=== PATIENT | male | born 1970 | race Caucasian/White ===

== ENCOUNTER 2020-06-14 17:09 | Emergency (ER) | payer SELFPAY ==
[~2020-06-14] VITALS: Ht 172.7 cm; Wt 64.4 kg
[2020-06-14] MEDS ORDERED: LORazepam INJ 2 MG/ML (ATIVAN) VIAL IVP PRN (17:15)
[2020-06-14] MEDS ORDERED: LABETALOL HCL 20 MG/4 ML VIAL IV ONE (17:15)
--- NOTE | 2020-06-14 17:15 | ED General ---
General Chief Complaint: General Problems/Pain Stated Complaint: INTOXICATION Source of Information: Patient, EMS Exam Limitations: No Limitations History of Present Illness Date Seen by Provider: Jun 14, 2020 Time Seen by Provider: 17:14 Initial Comments To ER by EMS from an apartment complex with reports of anxiety and high blood pr essure. He drinks a lot of alcohol because he is out of his Wellbutrin. He cannot find anywhere to get this filled. He is from [facility] and has been here since January. Currently living with his cousin. Timing/Duration: 1-2 Days Severity: Moderate Associated Systoms: Denies Symptoms Allergies and Home Medications Allergies Coded Allergies: No Known Drug Allergies (Unverified , 06/14/20) Home Medications Bupropion HCl 150 Mg Tab.er.24h, 150 MG PO DAILY Prescribed by: SCOTT LEVINE on 06/14/20 184 Chlordiazepoxide HCl 25 Mg Capsule, 25 MG PO UD Day 1: 2 tabs 3 times a day Day 2: 1 tab 4 times a day Day 3: 1 tab twice a day Day 4: 1 tab at bedtime Prescribed by: SCOTT LEVINE on 06/14/20 184 Potassium Chloride 20 Meq Tablet.er, 20 MEQ PO DAILY Prescribed by: SCOTT LEVINE on 06/14/20 1904 Patient Home Medication List Home Medication List Reviewed: Yes Review of Systems Review of Systems Constitutional: see HPI EENTM: see HPI Respiratory: no symptoms reported Cardiovascular: no symptoms reported Genitourinary: no symptoms reported Musculoskeletal: no symptoms reported Skin: no symptoms reported Psychiatric/Neurological: Anxiety Hematologic/Lymphatic: No Symptoms Reported Immunological/Allergic: no symptoms reported Physical Exam Vital Signs Vital Signs - First Documented 06/14/20 17:09 Temp 36.2 Pulse 111 Resp 17 B/P (MAP) 174/114 (134) Pulse Ox 96 O2 Delivery Room Air Capillary Refill : Height, Weight, BMI Height: '" Weight: lbs. oz. kg; BMI Method: General Appearance: No Apparent Distress, WD/WN, Anxious Eyes: Bilateral Eye Normal Inspection, Bilateral Eye PERRL, Bilateral Eye EOMI Neck: Full Range of Motion, Normal Inspection Respiratory: No Accessory Muscle Use, No Respiratory Distress Cardiovascular: Normal Peripheral Pulses, Tachycardia Gastrointestinal: Normal Bowel Sounds, Non Tender, Soft Extremity: Normal Capillary Refill, Normal Inspection Neurologic/Psychiatric: Alert, Oriented x3 Skin: Normal Color, Warm/Dry Progress/Results/Core Measures Suspected Sepsis SIRS Temperature: Pulse: Respiratory Rate: Laboratory Tests 06/14/20 17:19: White Blood Count 10.0 Blood Pressure / Mean: Laboratory Tests 06/14/20 17:19: Creatinine 0.87, INR Comment 0.9, Platelet Count 336, Total Bilirubin 0.5 Results/Orders Lab Results Laboratory Tests Test 06/14/20 17:19 06/14/20 17:25 Range/Units White Blood Count 10.0 4.3-11.0 10^3/uL Red Blood Count 5.24 4.30-5.52 10^6/uL Hemoglobin 15.3 13.3-17.7 g/dL Hematocrit 46 40-54 % Mean Corpuscular Volume 89 80-99 fL Mean Corpuscular Hemoglobin 29 25-34 pg Mean Corpuscular Hemoglobin Concent 33 32-36 g/dL Red Cell Distribution Width 14.4 10.0-14.5 % Platelet Count 336 130-400 10^3/uL Mean Platelet Volume 9.0 9.0-12.2 fL Immature Granulocyte % (Auto) 0 % Neutrophils (%) (Auto) 66 42-75 % Lymphocytes (%) (Auto) 21 12-44 % Monocytes (%) (Auto) 12 0-12 % Eosinophils (%) (Auto) 1 0-10 % Basophils (%) (Auto) 1 0-10 % Neutrophils # (Auto) 6.6 1.8-7.8 10^3/uL Lymphocytes # (Auto) 2.1 1.0-4.0 10^3/uL Monocytes # (Auto) 1.2 H 0.0-1.0 10^3/uL Eosinophils # (Auto) 0.1 0.0-0.3 10^3/uL Basophils # (Auto) 0.1 0.0-0.1 10^3/uL Immature Granulocyte # (Auto) 0.0 0.0-0.1 10^3/uL Prothrombin Time 12.1 L 12.2-14.7 SEC INR Comment 0.9 0.8-1.4 Sodium Level 145 135-145 MMOL/L Potassium Level 2.8 L 3.6-5.0 MMOL/L Chloride Level 108 H 98-107 MMOL/L Carbon Dioxide Level 19 L 21-32 MMOL/L Anion Gap 18 H 5-14 MMOL/L Blood Urea Nitrogen 8 7-18 MG/DL Creatinine 0.87 0.60-1.30 MG/DL Estimat Glomerular Filtration Rate > 60 BUN/Creatinine Ratio 9 Glucose Level 163 H 70-105 MG/DL Calcium Level 9.2 8.5-10.1 MG/DL Corrected Calcium 8.5-10.1 MG/DL Total Bilirubin 0.5 0.1-1.0 MG/DL Aspartate Amino Transf (AST/SGOT) 45 H 5-34 U/L Alanine Aminotransferase (ALT/SGPT) 26 0-55 U/L Alkaline Phosphatase 76 40-136 U/L Total Protein 7.5 6.4-8.2 GM/DL Albumin 4.6 H 3.2-4.5 GM/DL Serum Alcohol 280 H <10 MG/DL Coronavirus 2019 (JERROD) Negative Negative Urine Color YELLOW Urine Clarity CLEAR Urine pH 6.5 5-9 Urine Specific [place] <=1.005 1.016-1.022 Urine Protein NEGATIVE NEGATIVE Urine Glucose (UA) NEGATIVE NEGATIVE Urine Ketones NEGATIVE NEGATIVE Urine Nitrite NEGATIVE NEGATIVE Urine Bilirubin NEGATIVE NEGATIVE Urine Urobilinogen 0.2 < = 1.0 MG/DL Urine Leukocyte Esterase NEGATIVE NEGATIVE Urine RBC (Auto) NEGATIVE NEGATIVE Urine RBC NONE /HPF Urine WBC NONE /HPF Urine Crystals NONE /LPF Urine Bacteria NEGATIVE /HPF Urine Casts NONE /LPF Urine Mucus NEGATIVE /LPF Urine Culture Indicated NO Urine Opiates Screen NEGATIVE NEGATIVE Urine Oxycodone Screen NEGATIVE NEGATIVE Urine Methadone Screen NEGATIVE NEGATIVE Urine Propoxyphene Screen NEGATIVE NEGATIVE Urine Barbiturates Screen NEGATIVE NEGATIVE Ur Tricyclic Antidepressants Screen NEGATIVE NEGATIVE Urine Phencyclidine Screen NEGATIVE NEGATIVE Urine Amphetamines Screen NEGATIVE NEGATIVE Urine Methamphetamines Screen NEGATIVE NEGATIVE Urine Benzodiazepines Screen NEGATIVE NEGATIVE Urine Cocaine Screen NEGATIVE NEGATIVE Urine Cannabinoids Screen POSITIVE H NEGATIVE My Orders Orders - SCOTT LEVINE MDS NURSE Cbc With Automated Diff (06/14/20 17:11) Comprehensive Metabolic Panel (06/14/20 17:11) Alcohol (06/14/20 17:11) Protime With Inr (06/14/20 17:11) Ua Culture If Indicated (06/14/20 17:11) Drug Screen Stat (Urine) (06/14/20 17:11) Ekg Tracing (06/14/20 17:11) Ed Iv/Invasive Line Start (06/14/20 17:11) Lorazepam Injection (Ativan Injection) (06/14/20 17:15) Labetalol Injection (Normodyne Injection (06/14/20 17:15) Ns Iv 1000 Ml (Sodium Chloride 0.9%) (06/14/20 18:00) Potassium Chloride (Tablet) (Klor Con Ta (06/14/20 18:00) Potassium Cl 10meq/50ml Ivpb (Kcl 10 Meq (06/14/20 18:00) Chest 1 View, Ap/Pa Only (06/14/20 18:28) Covid 19 Inhouse Test (06/14/20 18:28) Bupropion Xl Tab (Non-Form) (Wellbutrin (06/14/20 19:00) Diazepam Tablet (Valium Tablet) (06/14/20 19:00) Medications Given in ED Current Medications Medications Dose Ordered Sig/Norman Route Start Time Stop Time Status Last Admin Dose Admin Bupropion HCl 150 mg ONCE ONCE PO 06/14/20 19:00 06/14/20 19:01 DC 06/14/20 19:16 150 MG Diazepam 5 mg ONCE ONCE PO 06/14/20 19:00 06/14/20 19:01 DC 06/14/20 19:16 5 MG Labetalol HCl 10 mg ONCE ONCE IV 06/14/20 17:15 06/14/20 17:16 DC 06/14/20 17:53 10 MG Lorazepam 1 mg ONCE PRN IVP 06/14/20 17:15 06/14/20 19:17 DC 06/14/20 17:53 1 MG Potassium Chloride 40 meq ONCE ONCE PO 06/14/20 18:00 06/14/20 18:01 DC 06/14/20 18:09 40 MEQ Vital Signs/I&O 06/14/20 06/14/20 17:09 19:17 Temp 36.2 36.2 Pulse 111 90 Resp 17 17 B/P (MAP) 174/114 (134) 146/111 (134) Pulse Ox 96 96 O2 Delivery Room Air Capillary Refill : Departure Communication (Admissions) I had a long detailed conversation with the patient. His girlfriend called to report that he was suicidal. She lives in [place] and is a social media assistant. I discussed with the patient any thoughts of suicidality. He states that he does not care if he dies but he does not want to actively kill himself and does not have any plan for that. I did offer him inpatient treatment and transfer to a facility with psychiatric services if he was suicidal or wanting to hurt himself or anyone else. He states he is not going to hurt himself. He states that he just turned 50 years old and wants to turn his life around and quit drinking. He states he does not feel relaxed unless he is drinking but then when he drinks he feels depressed. He would like some medication to help get him through the first few days of detox. He is very happy about this plan and promises me that he will not hurt himself and he does not want to go anywhere for inpatient treatment. He wants to be able to go to work. I plan to put him on Librium and restart his Wellbutrin. I made an appointment for him with [facility] this Saturday at 10 AM. Impression Primary Impression: Alcohol intoxication Additional Impression: Hypokalemia Disposition: 01 HOME, SELF-CARE Condition: Stable Departure-Patient Inst. Decision time for Depature: 17:56 Patient Instructions: Alcohol Intoxication ED Add. Discharge Instructions: 1. Potassium supplement as directed. You are scheduled to see Alysia Cesar at [facility] this Saturday at 10 AM. All discharge instructions reviewed with patient and/or family. Voiced unders tanding. Scripts Potassium Chloride (Potassium Chloride) 20 Meq Tablet.er 20 MEQ PO DAILY, #4 TAB Prov: SCOTT LEVINE APRN 06/14/20 Chlordiazepoxide HCl (Chlordiazepoxide HCl) 25 Mg Capsule 25 MG PO UD, #13 CAP Day 1: 2 tabs 3 times a day Day 2: 1 tab 4 times a day Day 3: 1 tab twice a day Day 4: 1 tab at bedtime Prov: SCOTT LEVINE APRN 06/14/20 Bupropion HCl (Wellbutrin Xl) 150 Mg Tab.er.24h 150 MG PO DAILY for Smoking Cessation, #30 TAB Prov: SCOTT LEVINE APRN 06/14/20 Copy Copies To 1: MAYDA VILLAGRAN PETER J APRN Jun 14, 2020 17:15
[2020-06-14 17:31] LABS: BASOPHILS # (AUTO) 0.1 10^3/uL (0.0-0.1); BASOPHILS % (AUTO) 1 % (0-10); EOSINOPHILS # (AUTO) 0.1 10^3/uL (0.0-0.3); EOSINOPHILS % (AUTO) 1 % (0-10); HEMATOCRIT 46 % (40-54); HEMOGLOBIN 15.3 g/dL (13.3-17.7); LYMPHOCYTES # (AUTO) 2.1 10^3/uL (1.0-4.0); LYMPHOCYTES % (AUTO) 21 % (12-44); MEAN CORPUSCULAR HEMOGLOBIN 29 pg (25-34); MEAN CORPUSCULAR HGB CONC 33 g/dL (32-36); MEAN CORPUSCULAR VOLUME 89 fL (80-99); MONOCYTES # (AUTO) 1.2 10^3/uL (0.0-1.0); MONOCYTES % (AUTO) 12 % (0-12); NEUTROPHILS # (AUTO) 6.6 10^3/uL (1.8-7.8); NEUTROPHILS % (AUTO) 66 % (42-75); PLATELET COUNT 336 10^3/uL (130-400)
[2020-06-14 17:36] LABS: BILIRUBIN,URINE NEGATIVE (NEGATIVE); CLARITY,URINE CLEAR; COLOR,URINE YELLOW; GLUCOSE, URINE (UA) NEGATIVE (NEGATIVE); KETONES,URINE NEGATIVE (NEGATIVE); LEUKOCYTE ESTERASE ,URINE NEGATIVE (NEGATIVE); NITRITE,URINE NEGATIVE (NEGATIVE); PH,URINE 6.5 (5-9); PROTEIN,URINE NEGATIVE (NEGATIVE)
[2020-06-14 17:39] LABS: INR 0.9 (0.8-1.4); PROTHROMBIN TIME PATIENT 12.1 SEC (12.2-14.7)
[2020-06-14 17:41] LABS: ALBUMIN 4.6 GM/DL (3.2-4.5); CHLORIDE 108 MMOL/L (98-107); POTASSIUM 2.8 MMOL/L (3.6-5.0); SODIUM 145 MMOL/L (135-145)
[2020-06-14 17:42] LABS: CALCIUM 9.2 MG/DL (8.5-10.1)
[2020-06-14 17:43] LABS: GLUCOSE 163 MG/DL (70-105); TOTAL PROTEIN 7.5 GM/DL (6.4-8.2)
[2020-06-14 17:44] LABS: CARBON DIOXIDE 19 MMOL/L (21-32)
[2020-06-14 17:45] LABS: BILIRUBIN,TOTAL 0.5 MG/DL (0.1-1.0)
[2020-06-14 17:46] LABS: ALKALINE PHOSPHATASE 76 U/L (40-136)
[2020-06-14 17:47] LABS: CREATININE SERUM 0.87 MG/DL (0.60-1.30); GFR ESTIMATED > 60
[2020-06-14 17:47] LABS: AMPHETAMINE SCREEN, URINE NEGATIVE (NEGATIVE); BARBITURATE SCREEN URINE NEGATIVE (NEGATIVE); BENZODIAZEPINES SCREEN URINE NEGATIVE (NEGATIVE); CANNABINOID SCREEN, URINE POSITIVE (NEGATIVE); COCAINE SCREEN URINE NEGATIVE (NEGATIVE); METHADONE STAT NEGATIVE (NEGATIVE); METHAMPHETAMINE SCREEN URINE S NEGATIVE (NEGATIVE); OPIATE SCREEN URINE NEGATIVE (NEGATIVE); OXYCODONE STAT NEGATIVE (NEGATIVE); PROPOXYPHENE STAT NEGATIVE (NEGATIVE); TRICYCLIC ANTIDEPRESSANTS SCRE NEGATIVE (NEGATIVE)
[2020-06-14 17:48] LABS: BUN/CREATININE RATIO 9
[2020-06-14 17:50] LABS: ALANINE AMINOTRANSFERASE 26 U/L (0-55)
[2020-06-14 17:53] LABS: BACTERIA,URINE NEGATIVE /HPF
[2020-06-14] MEDS ORDERED: KCL 10 MEQ TAB (MICRO K) PO ONE (18:00)
[2020-06-14] MEDS ORDERED: NS IV 1000 ML 1,000 ML IV SCH (18:00)
[2020-06-14] MEDS: POTASSIUM CL 10MEQ/50ML IVPB 50 ML IV SCH ×2 (18:09→18:10)
[2020-06-14] MEDS ORDERED: BUPR-42 PO (18:46)
[2020-06-14] MEDS ORDERED: CHLO25CA10 PO (18:46)
[2020-06-14] MEDS ORDERED: buPROPion XL 150 MG (WELLBUTRIN XL) NON-FORM PO ONE (19:00)
[2020-06-14] MEDS ORDERED: DIAZEPAM 5 MG (VALIUM) TABLET PO ONE (19:00)
[2020-06-14] MEDS ORDERED: POTA-51 PO (19:04)
--- NOTE | 2020-06-14 19:05 | Diagnostic Imaging Report ---
INDICATION: Pain. Anxiety and hypertension TECHNIQUE: Single view chest 6:54 PM. CORRELATION STUDY: None FINDINGS: The heart size, mediastinal configuration and pulmonary vascularity are within normal limits. The lungs are clear with no consolidating infiltrate. There is no significant effusion or pneumothorax. IMPRESSION: 1. Negative for acute abnormality of the chest. Dictated by: Dictated on workstation # [id number]
[2020-06-14 19:17] VITALS: BP 146/111
== END 2020-06-14 19:17 | disposition home or self-care (01) ==
LOC: ER 17:11
DX: F10.129 Alcohol abuse with intoxication, unspecified (principal); E87.6 Hypokalemia; F41.9 Anxiety disorder, unspecified; Y90.8 Blood alcohol level of 240 mg/100 ml or more; Z20.822 Contact with and (suspected) exposure to COVID-19
CPT/HCPCS: 71045; 80053; 80306; 81000; 85025; 85610; 99284; G0480; U0002; 36415; 80320; 87635

== ENCOUNTER 2020-06-21 03:10 | Emergency (ER) | payer SELFPAY ==
[~2020-06-21] VITALS: Ht 172.7 cm; Wt 65.7 kg
[~2020-06-21 03:10] MED LIST: BUPR-42 PO; CHLO25CA10 PO; POTA-51 PO
[2020-06-21] MEDS ORDERED: LACTATED RINGERS 1,000 ML IV STA (03:17)
[2020-06-21] MEDS ORDERED: LORazepam INJ 2 MG/ML (ATIVAN) VIAL IVP ONE (03:30)
[2020-06-21] MEDS ORDERED: PANTOPRAZOLE 40 MG (PROTONIX) VIAL IV ONE (03:30)
[2020-06-21] MEDS ORDERED: ONDANSETRON 4 MG/2 ML (SDV) Z0FRAN IVP ONE (03:30)
[2020-06-21] MEDS ORDERED: LACTATED RINGERS 1,000 ML IV ONE (03:30)
[2020-06-21 03:34] LABS: BASOPHILS # (AUTO) 0.1 10^3/uL (0.0-0.1); BASOPHILS % (AUTO) 1 % (0-10); EOSINOPHILS # (AUTO) 0.1 10^3/uL (0.0-0.3); EOSINOPHILS % (AUTO) 1 % (0-10); HEMATOCRIT 47 % (40-54); HEMOGLOBIN 15.8 g/dL (13.3-17.7); LYMPHOCYTES # (AUTO) 1.8 10^3/uL (1.0-4.0); LYMPHOCYTES % (AUTO) 16 % (12-44); MEAN CORPUSCULAR HEMOGLOBIN 29 pg (25-34); MEAN CORPUSCULAR HGB CONC 34 g/dL (32-36); MEAN CORPUSCULAR VOLUME 86 fL (80-99); MEAN PLATELET VOLUME 9.2 fL (9.0-12.2); MONOCYTES # (AUTO) 1.6 10^3/uL (0.0-1.0); MONOCYTES % (AUTO) 15 % (0-12); NEUTROPHILS # (AUTO) 7.3 10^3/uL (1.8-7.8); NEUTROPHILS % (AUTO) 68 % (42-75); PLATELET COUNT 340 10^3/uL (130-400); WHITE BLOOD COUNT 10.8 10^3/uL (4.3-11.0)
[2020-06-21 03:46] LABS: ALBUMIN 4.8 GM/DL (3.2-4.5); CHLORIDE 97 MMOL/L (98-107); POTASSIUM 3.2 MMOL/L (3.6-5.0); SODIUM 140 MMOL/L (135-145)
[2020-06-21 03:47] LABS: CALCIUM 10.9 MG/DL (8.5-10.1)
[2020-06-21 03:49] LABS: GLUCOSE 129 MG/DL (70-105); TOTAL PROTEIN 7.8 GM/DL (6.4-8.2)
[2020-06-21 03:50] LABS: CARBON DIOXIDE 24 MMOL/L (21-32)
[2020-06-21 03:52] LABS: ALKALINE PHOSPHATASE 81 U/L (40-136); CREATININE SERUM 0.96 MG/DL (0.60-1.30)
[2020-06-21 03:54] LABS: BUN/CREATININE RATIO 16
[2020-06-21 03:55] LABS: ALANINE AMINOTRANSFERASE 34 U/L (0-55); MAGNESIUM 1.5 MG/DL (1.6-2.4); SALICYLATE < 5.0 MG/DL (5.0-20.0)
[2020-06-21 03:56] LABS: FIBRIN DEGRADATION PRODUCTS 0.27 UG/ML (0.00-0.49); INR 0.9 (0.8-1.4); PROTHROMBIN TIME PATIENT 12.8 SEC (12.2-14.7)
[2020-06-21 03:57] LABS: ACETAMINOPHEN < 10 UG/ML (10-30); GFR ESTIMATED > 60
[2020-06-21] MEDS ORDERED: MAGNESIUM 1 GM/100 ML IVPB 100 ML IV ONE (04:15)
[2020-06-21] MEDS ORDERED: POTASSIUM CL 10MEQ/50ML IVPB 50 ML IV ONE (04:15)
[2020-06-21] MEDS ORDERED: FOLIC ACID 1 MG TAB PO ONE (04:15)
[2020-06-21] MEDS ORDERED: THIAMINE 100 MG (VITAMIN B-1) TAB PO ONE (04:15)
--- NOTE | 2020-06-21 04:22 | ED Psychosocial ---
General Chief Complaint: Detox Stated Complaint: ALCOHOL WITHDRAWL Nursing Triage Note: TO ED VIA [facility]BULATORY FROM AMBULANCE TO ROOM 5. C/O WITHDRAWAL SYMPTOMS OF SHAKINESS, NAUSEA, "FEELS SICK". STATING LAST ETOH SATURDAY AT 1000 AND ALSO LAST METH USE. Source: patient, EMS Exam Limitations: no limitations History of Present Illness Date Seen by Provider: Jun 21, 2020 Time Seen by Provider: 03:10 Initial Comments Patient presents ER by EMS from the hotel he was staying at with chief complaint he has not had any alcohol to drink in the past 24 hours. He typically drinks 3 pints of vodka daily. He has not had he did have some meth yesterday however. He feels shaky nauseated and has a cough and shortness of air. He says his left flank and back hurts. He denies any falls or trauma. He denies any fevers chills or vomiting. He denies any diarrhea. No history of heart disease. He is from [place] and has anxiety. No local physician. States he feels like he is withdrawing. His plan was tomorrow to go up to [facility] for inpatient treatment Allergies and Home Medications Allergies Coded Allergies: No Known Drug Allergies (Unverified , 06/14/20) Home Medications Bupropion HCl 150 Mg Tab.er.24h, 150 MG PO DAILY Prescribed by: SCOTT LEVINE on 06/14/201845 Chlordiazepoxide HCl 25 Mg Capsule, 25 MG PO UD Day 1: 2 tabs 3 times a day Day 2: 1 tab 4 times a day Day 3: 1 tab twice a day Day 4: 1 tab at bedtime Prescribed by: SCOTT LEVINE on 06/14/20 184 Omeprazole 20 Mg Capsule.dr, 20 MG PO BID Prescribed by: TIFFANY DING on 06/21/20543 Ondansetron 4 Mg Tab.rapdis, 4 MG PO Q6H PRN for NAUSEA/VOMITING Prescribed by: TIFFANY DING on 06/21/20543 Potassium Chloride 20 Meq Tablet.er, 20 MEQ PO DAILY Prescribed by: SCOTT LEVINE on 06/14/201903 Sucralfate 1 Gm Tablet, 1 GM PO QIDACHS Prescribed by: TIFFANY DING on 06/21/20543 Patient Home Medication List Home Medication List Reviewed: Yes Review of Systems Constitutional: No chills, No diaphoresis, No fever EENTM: No ear discharge, No ear pain Respiratory: No cough, No short of breath Cardiovascular: No Hx of Intervention, No palpitations Gastrointestinal: No abdominal pain, No constipation, No diarrhea, No nausea Genitourinary: No discharge, No dysuria Musculoskeletal: No back pain, No joint pain All Other Systems Reviewed Negative Unless Noted: Yes Past Saqbfaq-Qndlow-Vulmrs Hx Patient Social History Alcohol Use: Denies Use Alcohol Beverage of Choice: Cheap Liquor Smoking Status: Never a Smoker Type Used: Cigarettes Recent Infectious Disease Expo: No Recent Hopitalizations: No Immunizations Up To Date Tetanus Booster (TDap): Unknown Seasonal Allergies Seasonal Allergies: No Past Medical History Surgeries: No Respiratory: No Cardiac: Yes Hypertension Neurological: No Genitourinary: No Gastrointestinal: No Musculoskeletal: No Endocrine: No HEENT: No Cancer: No Psychosocial: Yes Anxiety, Depression Integumentary: No Blood Disorders: No Physical Exam Vital Signs - First Documented 06/21/20 06/21/20 03:13 06:10 Temp 36.8 Pulse 147 Resp 20 B/P (MAP) 181/130 (147) Pulse Ox 100 O2 Delivery Room Air Capillary Refill : Less Than 3 Seconds Height, Weight, BMI Height: '" Weight: lbs. oz. kg; 22.00 BMI Method: General Appearance: WD/WN, mild distress HEENT: normal ENT inspection, pharynx normal Neck: full range of motion, normal inspection Respiratory: lungs clear, normal breath sounds, no respiratory distress, no accessory muscle use Cardiovascular: normal peripheral pulses, regular rate, rhythm Peripheral Pulses: 2+ Radial Pulses (R), 2+ Radial Pulses (L) Gastrointestinal: normal bowel sounds, non tender, soft, no organomegaly Neurologic/Psychiatric: alert, normal mood/affect, oriented x 3 Skin: normal color, warm/dry Progress/Results/Core Measures Results/Orders Lab Results Laboratory Tests Test 06/21/20 03:20 06/21/20 05:10 Range/Units White Blood Count 10.8 4.3-11.0 10^3/uL Red Blood Count 5.38 4.30-5.52 10^6/uL Hemoglobin 15.8 13.3-17.7 g/dL Hematocrit 47 40-54 % Mean Corpuscular Volume 86 80-99 fL Mean Corpuscular Hemoglobin 29 25-34 pg Mean Corpuscular Hemoglobin Concent 34 32-36 g/dL Red Cell Distribution Width 14.3 10.0-14.5 % Platelet Count 340 130-400 10^3/uL Mean Platelet Volume 9.2 9.0-12.2 fL Immature Granulocyte % (Auto) 0 % Neutrophils (%) (Auto) 68 42-75 % Lymphocytes (%) (Auto) 16 12-44 % Monocytes (%) (Auto) 15 H 0-12 % Eosinophils (%) (Auto) 1 0-10 % Basophils (%) (Auto) 1 0-10 % Neutrophils # (Auto) 7.3 1.8-7.8 10^3/uL Lymphocytes # (Auto) 1.8 1.0-4.0 10^3/uL Monocytes # (Auto) 1.6 H 0.0-1.0 10^3/uL Eosinophils # (Auto) 0.1 0.0-0.3 10^3/uL Basophils # (Auto) 0.1 0.0-0.1 10^3/uL Immature Granulocyte # (Auto) 0.0 0.0-0.1 10^3/uL Prothrombin Time 12.8 12.2-14.7 SEC INR Comment 0.9 0.8-1.4 Activated Partial Thromboplast Time 25 24-35 SEC D-Dimer 0.27 0.00-0.49 UG/ML Sodium Level 140 135-145 MMOL/L Potassium Level 3.2 L 3.6-5.0 MMOL/L Chloride Level 97 L 98-107 MMOL/L Carbon Dioxide Level 24 21-32 MMOL/L Anion Gap 19 H 5-14 MMOL/L Blood Urea Nitrogen 15 7-18 MG/DL Creatinine 0.96 0.60-1.30 MG/DL Estimat Glomerular Filtration Rate > 60 BUN/Creatinine Ratio 16 Glucose Level 129 H 70-105 MG/DL Calcium Level 10.9 H 8.5-10.1 MG/DL Corrected Calcium 8.5-10.1 MG/DL Magnesium Level 1.5 L 1.6-2.4 MG/DL Total Bilirubin 1.0 0.1-1.0 MG/DL Aspartate Amino Transf (AST/SGOT) 33 5-34 U/L Alanine Aminotransferase (ALT/SGPT) 34 0-55 U/L Alkaline Phosphatase 81 40-136 U/L Total Creatine Kinase 119 30-200 U/L C-Reactive Protein High Sensitivity 0.61 H 0.00-0.50 MG/DL Total Protein 7.8 6.4-8.2 GM/DL Albumin 4.8 H 3.2-4.5 GM/DL Procalcitonin 0.04 <0.10 NG/ML Salicylates Level < 5.0 L 5.0-20.0 MG/DL Acetaminophen Level < 10 L 10-30 UG/ML Serum Alcohol < 10 <10 MG/DL Coronavirus (COVID-19)(PCR) Negative Negative Coronavirus 2019 (JERROD) Negative Negative Urine Color YELLOW Urine Clarity TURBID Urine pH 7.0 5-9 Urine Specific [place] 1.015 L 1.016-1.022 Urine Protein 1+ H NEGATIVE Urine Glucose (UA) NEGATIVE NEGATIVE Urine Ketones 1+ H NEGATIVE Urine Nitrite NEGATIVE NEGATIVE Urine Bilirubin NEGATIVE NEGATIVE Urine Urobilinogen 0.2 < = 1.0 MG/DL Urine Leukocyte Esterase NEGATIVE NEGATIVE Urine RBC (Auto) NEGATIVE NEGATIVE Urine RBC 0-2 /HPF Urine WBC 2-5 /HPF Urine Squamous Epithelial Cells RARE /HPF Urine Crystals PRESENT H /LPF Urine Amorphous Sediment LARGE CECILIO PHOSPHATE H /LPF Urine Bacteria MODERATE H /HPF Urine Casts NONE /LPF Urine Mucus NEGATIVE /LPF Urine Culture Indicated YES Urine Opiates Screen NEGATIVE NEGATIVE Urine Oxycodone Screen NEGATIVE NEGATIVE Urine Methadone Screen NEGATIVE NEGATIVE Urine Propoxyphene Screen NEGATIVE NEGATIVE Urine Barbiturates Screen NEGATIVE NEGATIVE Ur Tricyclic Antidepressants Screen NEGATIVE NEGATIVE Urine Phencyclidine Screen NEGATIVE NEGATIVE Urine Amphetamines Screen POSITIVE H NEGATIVE Urine Methamphetamines Screen POSITIVE H NEGATIVE Urine Benzodiazepines Screen POSITIVE H NEGATIVE Urine Cocaine Screen NEGATIVE NEGATIVE Urine Cannabinoids Screen POSITIVE H NEGATIVE Micro Results Microbiology 06/21/20 Influenza Types A,B Antigen (VALENTINO) - Final, Complete My Orders Orders - TIFFANY DING Ed Iv/Invasive Line Start (06/21/20 03:17) Lactated Ringers (Lr 1000 Ml Iv Solution (06/21/20 03:30) Lactated Ringers (Lr 1000 Ml Iv Solution (06/21/20 03:17) Ondansetron Injection (Zofran Injectio (06/21/20 03:30) Lorazepam Injection (Ativan Injection) (06/21/20 03:30) Pantoprazole Injection (Protonix Injecti (06/21/20 03:30) Ua Culture If Indicated (06/21/20 03:17) Cbc With Automated Diff (06/21/20 03:17) Comprehensive Metabolic Panel (06/21/20 03:17) Alcohol (06/21/20 03:17) Drug Screen Stat (Urine) (06/21/20 03:17) Acetaminophen (06/21/20 03:17) Salicylate (06/21/20 03:17) Ekg Tracing (06/21/20 03:17) Ed Iv/Invasive Line Start (06/21/20 03:17) Monitor-Rhythm Ecg Trace Only (06/21/20 03:17) Magnesium (06/21/20 03:17) Chest 1 View, Ap/Pa Only (06/21/20 03:20) Hs C Reactive Protein (06/21/20 03:20) Procalcitonin (Pct) (06/21/20 03:20) Protime With Inr (06/21/20 03:20) Partial Thromboplastin Time (06/21/20 03:20) Fibrin Degradation Products (06/21/20 03:20) Covid 19 Inhouse Test (06/21/20 03:23) Coronavirus Sars-Cov-2 So 2019 (06/21/20 03:23) Influenza A And B Antigens (06/21/20 03:23) Potassium Cl 10meq/50ml Ivpb (Kcl 10 Meq (06/21/20 04:15) Thiamine Tablet (Vitamin B-1 Tablet) (06/21/20 04:15) Folic Acid Tablet (Folic Acid Tablet) (06/21/20 04:15) Magnesium 1 Gm/100 Ml Ivpb (Magnesium Lopez (06/21/20 04:15) Creatine Kinase (06/21/20 05:05) Antacid Suspension (Mylanta Suspension (06/21/20 05:15) Hydralazine Injection (Apresoline Inject (06/21/20 05:30) Urine Culture (06/21/20 05:10) Medications Given in ED Vital Signs/I&O Blood Pressure Mean: 147 Progress Progress Note #1: Time: 04:19 Progress Note 2 L of fluids, 2 mg Ativan, 8 mg Zofran, chest x-ray labs EKG. 40 mg pantoprazole. Progress Note #2: Time: 05:11 Progress Note Thiamine, folate, replace his magnesium and potassium. He still having a little upset stomach so regarding give him some Maalox. He otherwise says he feels much better now. He is no longer having any nausea. We have continued to reassure and support his plan to follow-up with the [place] [facility]. Plan to put him out on Carafate, omeprazole, ondansetron as necessary. CPK pending. He did produce some urine. Initial ECG Impression Date: Jun 21, 2020 Initial ECG Impression Time: 03:22 Initial ECG Rate: 138 Initial ECG Rhythm: S.Tach Initial ECG Intervals: Normal Initial ECG Impression: Normal Comment Sinus tachycardia without clinically relevant ST elevation or depression. Diagnostic Imaging Diagonstic Imaging: Xray Plain Films/CT/US/NM/MRI: chest Comments No acute cardiopulmonary processes on 1 view chest x-ray. No acute osseous abnormalities. [facility] [place] [place] NAME: CONNIE VARGAS [facility] REC#: [id number] PT STATUS: DEP ER : 1970 PHYSICIAN: TIFFANY DING MD ADMIT DATE: 06/21/20/ER Signed Date of Exam:06/21/20 CHEST 1 VIEW, AP/PA ONLY INDICATION: Left flank pain Portable chest 4:14 AM Heart size and pulmonary vascularity are normal. Lungs are clear. There are no effusions or pneumothoraces. IMPRESSION: Negative chest Dictated by: Dictated on workstation # [id number] Dict: 06/21/20 0616 Trans: 06/21/20 0758 ERYN [id number] Interpreted by: CAR LESLIE MD Electronically signed by: CAR LESLIE MD 06/21/20 0758 Reviewed: Reviewed by Me Departure Impression Primary Impression: Alcohol dependence Qualified Codes: F10.29 - Alcohol dependence with unspecified alcohol- induced disorder Additional Impressions: Methamphetamine dependence Gastritis Qualified Codes: K29.20 - Alcoholic gastritis without bleeding Disposition: HOME, SELF-CARE Condition: Improved Departure-Patient Inst. Decision time for Depature: 05:40 Referrals: [facility] [place] NO,LOCAL PHYSICIAN (PCP) Primary Care Physician Patient Instructions: Drug Abuse and Drug Addiction (DC), Gastritis, Alcohol Use Disorder ED Add. Discharge Instructions: Plan to follow-up with a treatment center such as the [facility], Alcoholics Anonymous, Narcotics Anonymous or [facility] outpatient treatment. Drink plenty of fluids. If you have more stomach pain you may try antacids such as Rolaids, Tums, Mylanta/Maalox etc. Omeprazole 20 mg twice a day for the next month. Carafate 4 times a day, before meals and at bedtime for 2 weeks. Tylenol 1000 mg every 8 hours as necessary for pain. There is a card included with your discharge for [facility] they can also help you with your alcohol and drug detox. Librium was previously sent to the pharmacy for you. If you have not picked this up then it should still be there for you to use as prescribed. All discharge instructions reviewed with patient and/or family. Voiced understa nding. Scripts Omeprazole (Omeprazole) 20 Mg Capsule.dr 20 MG PO BID for 30 Days, #60 CAP 0 Refills Prov: TIFFANY DING 06/21/20 Sucralfate (Carafate) 1 Gm Tablet 1 GM PO QIDACHS for 14 Days, #56 TAB 0 Refills Prov: TIFFANY DING 06/21/20 Ondansetron (Ondansetron Odt) 4 Mg Tab.rapdis 4 MG PO Q6H PRN for NAUSEA/VOMITING, #8 TAB 0 Refills Prov: TIFFANY DING 06/21/20 TIFFANY DING Jun 21, 2020 04:21
[2020-06-21] MEDS ORDERED: ANTACID SUSP 30 ML UDC (MYLANTA) PO ONE (05:15)
[2020-06-21 05:20] LABS: BILIRUBIN,URINE NEGATIVE (NEGATIVE); CLARITY,URINE TURBID; COLOR,URINE YELLOW; GLUCOSE, URINE (UA) NEGATIVE (NEGATIVE); KETONES,URINE 1+ (NEGATIVE); LEUKOCYTE ESTERASE ,URINE NEGATIVE (NEGATIVE); NITRITE,URINE NEGATIVE (NEGATIVE); PROTEIN,URINE 1+ (NEGATIVE)
[2020-06-21] MEDS ORDERED: hydrALAZINE (APESOLINE) 20 MG/ML VIAL IV ONE (05:30)
[2020-06-21 05:33] LABS: AMORPHOUS SEDIMENT,UR LARGE AMOR PHOSPHATE /LPF; AMPHETAMINE SCREEN, URINE POSITIVE (NEGATIVE); BACTERIA,URINE MODERATE /HPF; BENZODIAZEPINES SCREEN URINE POSITIVE (NEGATIVE); CANNABINOID SCREEN, URINE POSITIVE (NEGATIVE); COCAINE SCREEN URINE NEGATIVE (NEGATIVE); METHAMPHETAMINE SCREEN URINE S POSITIVE (NEGATIVE); OPIATE SCREEN URINE NEGATIVE (NEGATIVE); RBC,URINE 0-2 /HPF; SQUAMOUS EPITHELIAL CELL,UR RARE /HPF
[2020-06-21 05:34] LABS: BARBITURATE SCREEN URINE NEGATIVE (NEGATIVE); METHADONE STAT NEGATIVE (NEGATIVE); OXYCODONE STAT NEGATIVE (NEGATIVE); PROPOXYPHENE STAT NEGATIVE (NEGATIVE); TRICYCLIC ANTIDEPRESSANTS SCRE NEGATIVE (NEGATIVE)
[2020-06-21] MEDS ORDERED: SUCR1TAB36 PO (05:44)
[2020-06-21] MEDS ORDERED: OMEP20CA18 PO (05:44)
[2020-06-21] MEDS ORDERED: ONDA4TAB11 PO (05:44)
[2020-06-21 06:10] VITALS: BP 176/115
--- NOTE | 2020-06-21 06:20 | Diagnostic Imaging Report ---
INDICATION: Left flank pain Portable chest 4:14 AM Heart size and pulmonary vascularity are normal. Lungs are clear. There are no effusions or pneumothoraces. IMPRESSION: Negative chest Dictated by: Dictated on workstation # [id number]
== END 2020-06-21 06:12 | disposition home or self-care (01) ==
LOC: EDUNIT# 03:10 → ER 03:12
DX: F10.20 Alcohol dependence, uncomplicated (principal); F15.21 Other stimulant dependence, in remission; K29.70 Gastritis, unspecified, without bleeding; F32.9 Major depressive disorder, single episode, unspecified; F41.9 Anxiety disorder, unspecified; Z20.828 Contact with and (suspected) exposure to other viral communicable diseases
CPT/HCPCS: 71045; 80053; 80306; 81000; 82550; 83735; 84145; 85025; 85379; 85610; 85730; 86141; 87088; 87804; 93005; 93041; G0480 ×3; U0002; 36415; 80320; 80329; 87635